=== PATIENT | female | born 1960 | race Hispanic/Latino ===

== ENCOUNTER 2021-09-04 06:39 | Emergency (ER) | payer SELFPAY ==
[~2021-09-04] VITALS: Ht 157.5 cm; Wt 61.2 kg
[2021-09-04 07:47] LABS: BASOPHILS % (AUTO) 0.1 % (0.0-5.0); EOSINOPHILS % (AUTO) 4.8 % (0.0-8.0); HEMATOCRIT 38.4 % (36-48); LYMPHOCYTES % (AUTO) 25.9 % (21.0-51.0); MEAN CORPUSCULAR HEMOGLOBIN 30.6 pg (27.0-33.0); MEAN CORPUSCULAR HGB CONC 33.1 g/dL (32.0-36.0); MEAN CORPUSCULAR VOLUME 92.5 fL (79-99); MONOCYTES % (AUTO) 7.4 % (3.0-13.0); NEUTROPHILS % (AUTO) 61.5 % (40.0-77.0); PLATELET COUNT (AUTO) 234 K/uL (130-400); RED BLOOD CELL COUNT(AUTO) 4.15 MIL/uL (4.00-5.50); RED CELL DISTRIBUTION WIDTH 12.5 % (11.0-15.5); WHITE BLOOD COUNT (AUTO) 6.7 K/uL (4.8-10.8)
[2021-09-04] MEDS ORDERED: ONDANSETRON 4MG INJ ONE (07:48)
[2021-09-04 07:59] LABS: APPEARANCE,URINE Cloudy (CLEAR); BILIRUBIN,URINE Negative (NEGATIVE); COLOR,URINE Yellow (YELLOW); GLUCOSE, URINE (UA) Negative (NEGATIVE); KETONES,URINE Negative (NEGATIVE); LEUKOCYTE ESTERASE ,URINE Small (NEGATIVE); NITRATE,URINE Negative (NEGATIVE); OCCULT BLOOD,URINE Negative (NEGATIVE); PH,URINE 5.5 (5.0-8.0); PROTEIN,URINE Negative (NEGATIVE); UROBILINOGEN,URINE 0.2 mg/dL (0.2-1.0)
[2021-09-04] MEDS ORDERED: ONDANSETRON 4MG INJ IVP SCH (08:00)
[2021-09-04] MEDS ORDERED: 0.9%NACL 1000ML 1,000 ML IV SCH (08:00)
[2021-09-04] MEDS ORDERED: KETOROLAC 15MG/ML VIAL (15MG/ML) IV SCH (08:00)
[2021-09-04 08:05] LABS: ALBUMIN 3.6 g/dL (3.5-5.0); BILIRUBIN,TOTAL 0.1 mg/dL (0.2-1.0); CREATININE 0.7 mg/dL (0.5-1.5); POTASSIUM 3.7 mmol/L (3.5-5.1); TOTAL PROTEIN, SERUM 7.2 g/dL (6.0-8.3)
[2021-09-04 08:48] LABS: BACTERIA,URINE Rare /HPF (None Seen); CALCIUM OXALATE CRYSTALS,UR Few /LPF (None Seen); MUCUS,URINE Few LPF (None Seen); RBC,URINE 0-1 /HPF (0-1); SQUAMOUS EPITHELIAL CELL,UR Few /HPF (0-2); WBC,URINE 0-1 /HPF (0-1)
[2021-09-04] MEDS ORDERED: ONDA4TAB10 PO (09:01)
[2021-09-04 09:19] VITALS: BP 125/76
== END 2021-09-04 09:20 | disposition home or self-care (01) ==
LOC: EDH 06:39
DX: K52.9 Noninfective gastroenteritis and colitis, unspecified (principal); Z79.1 Long term (current) use of non-steroidal anti-inflammatories (NSAID); Z79.899 Other long term (current) drug therapy
CPT/HCPCS: 36415; 76705; 81001; 80053; 83690; 84484; 85025; 93005; 96361; 96374; 96375; 99285; J1885; J2405; J7030

== ENCOUNTER 2021-09-05 17:44 | Emergency (ER) | payer SELFPAY ==
[~2021-09-05] VITALS: Ht 157.5 cm; Wt 61.2 kg
[~2021-09-05 17:44] MED LIST: ONDA4TAB10 PO
[2021-09-05 17:48] VITALS: BP 127/93
== END 2021-09-05 19:34 | disposition left against medical advice (07) ==
LOC: EDH 17:44
DX: R10.11 Right upper quadrant pain (principal); Z53.21 Procedure and treatment not carried out due to patient leaving prior to being seen by health care provider

== ENCOUNTER 2024-05-10 00:04 | Emergency (ER) | payer BC ==
[~2024-05-10] VITALS: Ht 157.5 cm; Wt 66.7 kg
[~2024-05-10 00:04] MED LIST changes: +ONDA-243 PO; -ONDA4TAB10 PO
[2024-05-10 01:01] LABS: BASOPHILS # (AUTO) 0.03 K/uL (0.00-0.20); BASOPHILS % (AUTO) 0.4 % (0.0-5.0); EOSINOPHILS # (AUTO) 0.35 K/uL (0.00-0.70); EOSINOPHILS % (AUTO) 4.7 % (0.0-8.0); HEMATOCRIT 39.7 % (36-48); IMMATURE GRANULOCYTE ABSOLUTE 0.04 K/uL (0-1); LYMPHOCYTES # (AUTO) 2.2 K/uL (1.0-4.8); LYMPHOCYTES % (AUTO) 29.1 % (21.0-51.0); MEAN CORPUSCULAR HGB CONC 33.5 g/dL (32.0-36.0); MEAN CORPUSCULAR VOLUME 92.5 fL (79-99); MONOCYTES # (AUTO) 0.5 K/uL (0.1-1.0); NEUTROPHILS # (AUTO) 4.3 K/uL (1.8-7.7); NEUTROPHILS % (AUTO) 58.3 % (40.0-77.0); PLATELET COUNT (AUTO) 253 K/uL (130-400); RED BLOOD CELL COUNT(AUTO) 4.29 MIL/uL (4.00-5.50); RED CELL DISTRIBUTION WIDTH 12.7 % (11.0-15.5); WHITE BLOOD COUNT (AUTO) 7.4 K/uL (4.8-10.8)
[2024-05-10 01:12] LABS: CREATININE 0.8 mg/dL (0.5-1.0); POTASSIUM 3.4 mmol/L (3.5-5.1)
[2024-05-10] MEDS: MAG/ALUM/SIMETH 30 ML UDCUP PO ONE (01:37)
[2024-05-10] MEDS: LIDOCAINE HCL 2% VISCOUS 15 ML UDCUP PO ONE (01:38)
[2024-05-10] MEDS ORDERED: IOHEXOL-350 75 ML VIAL IV ONE (02:36)
[2024-05-10] MEDS ORDERED: PANT40TA55 PO (04:01)
[2024-05-10] MEDS: SUCRALFATE 1 GM/10 ML PO ONE (04:03)
[2024-05-10 04:04] VITALS: BP 122/70; PULSE 70; RESP 20; TEMP 98.6; O2SAT 100
== END 2024-05-10 04:07 | disposition home or self-care (01) ==
LOC: EDH 00:04
DX: K21.00 Gastro-esophageal reflux disease with esophagitis, without bleeding (principal); Z79.899 Other long term (current) drug therapy; Z98.890 Other specified postprocedural states
CPT/HCPCS: 99284; 70491; 71045; 80048; 85025; 36415; 93005; Q9967